=== PATIENT | male | born 1940 | race Caucasian/White ===

== ENCOUNTER → 2025-03-23 | Outpatient (CLI) | payer MEDICARE, BC, SELFPAY ==
--- NOTE | 2025-03-23 13:40 | XR_ITS ---
Examination: Bone densitometry Date and time of exam: March 23, 2025, 1332 hours INDICATIONS: 84-year-old male with diagnosis age-related osteoporosis, diabetic Technique: Lumbar spine and forearm total bone mineralization values of an calculated. Peak reference and age match control results have been displayed. Findings: Lumbar spine total bone mineralization is 1.121 gm/cm2. This is 0.3 standard deviations above peak reference. This is 1.6 standard deviations above age-matched controls. Forearm total bone mineralization is 0.723 gm/cm2 This is 0.8 standard deviations above peak reference. This is 2.9 standard deviations above age-matched controls Impression: There is normal mineralization based on lumbar spine measurements. There is normal mineralization based on forearm measurements Lumbar mineralization is increased 5.5% compared with April 18, 2019 Forearm mineralization is decreased 2.2% compared with April 18, 2019
== END | disposition home or self-care (01) ==
PROVIDERS: PCP Family Medicine; Referring Provider Family Medicine; Visit Provider Family Medicine
DX: M81.0 Age-related osteoporosis without current pathological fracture (principal); M85.88 Other specified disorders of bone density and structure, other site
CPT/HCPCS: 77080